=== PATIENT | female | born 2000 | race Caucasian/White ===

== ENCOUNTER 2018-03-23 23:04 | Emergency (ER) | payer OTHER ==
[2018-03-23] MEDS ORDERED: ONDANSETRON 4 MG TAB.RAPDIS PO ONE (23:28)
[2018-03-23] MEDS ORDERED: LIDOCAINE 1%/EPINEPHRINE INJ 20 ML VIAL INJ ONE (23:35)
--- NOTE | 2018-03-23 23:38 | ER Document Report ---
ED Animal Bite - General Chief Complaint: Dog Bite Stated Complaint: POSSIBLE ANIMAL BITE Time Seen by Provider: 03/23/18 23:22 Notes: Patient is a 18-year-old female that comes to the emergency department for chief complaint of dog bite to her right forearm. She states that she was trying to help her friend, the dog is owned by the friend and had already bitten the friend, afterwards patient was bitten as she approached. She was also bitten over the left forearm. She reports dog is up-to-date on its vaccinations. Patient reports being up-to-date on her tetanus within 5 years. Patient admits to intoxication with alcohol tonight but denies any other injuries. She states she is nauseated because of the site of blood. TRAVEL OUTSIDE OF THE [place] IN LAST 30 DAYS: No - Related Data Allergies/Adverse Reactions: No Known Allergies Allergy (Unverified 03/23/18 23:11) Past Medical History - General Information source: Patient - Social History Smoking Status: Never Smoker Frequency of alcohol use: Social Drug Abuse: None Lives with: Family Family History: Reviewed & Not Pertinent - Medical History Medical History: Negative Surgical Hx: Negative - Immunizations Immunizations up to date: Yes Hx Diphtheria, Pertussis, Tetanus Vaccination: Yes Review of Systems - Review of Systems Constitutional: No symptoms reported EENT: No symptoms reported Cardiovascular: No symptoms reported Respiratory: No symptoms reported Gastrointestinal: No symptoms reported Genitourinary: No symptoms reported Female Genitourinary: No symptoms reported Musculoskeletal: See HPI Skin: See HPI Hematologic/Lymphatic: No symptoms reported Neurological/Psychological: No symptoms reported Physical Exam - Vital signs Vitals: Temp Pulse Resp BP Pulse Ox 97.2 F 51 L 14 89/41 L 100 03/23/18 23:24 03/23/18 23:24 03/23/18 23:24 03/23/18 23:24 03/23/18 23:24 - Notes Notes: GENERAL: Tearful, hyperventilating HEAD: Normocephalic, atraumatic. EYES: Pupils equal, round, and reactive to light. Extraocular movements intact. ENT: Oral mucosa moist, tongue midline. Oropharynx unremarkable. Airway patent. Nares patent, no nasal septal hematoma, TM's intact. NECK: Full range of motion. Supple. Trachea midline. LUNGS: Clear to auscultation bilaterally, no wheezes, rales, or rhonchi. No respiratory distress. HEART: Regular rate and rhythm. No murmur ABDOMEN: Soft, non-tender. Non-distended. Bowel sounds present in all 4 quadrants. GENITOURINARY: Deferred EXTREMITIES: Multiple puncture wounds with mild soft tissue swelling over the sides of the proximal forearm on the right, there is a bite briana on the left forearm distally as well but the skin is not broken. Normal distal neurovascular exam, range of motion of the fingers, wrist, elbow, shoulder bilaterally. BACK: no cervical, thoracic, lumbar midline tenderness. No saddle anesthesia, normal distal neurovascular exam. NEUROLOGICAL: Alert and oriented x3. Normal speech. [cranial nerves II through XII grossly intact]. PSYCH: Anxious SKIN: Warm, dry, normal turgor. No rashes or lesions noted. Course - Re-evaluation Re-evalutation: X-ray without obvious abnormality, read is still pending. Initial vital signs strange, patient's blood pressure was repeated and is 130s systolic. Inquired about the initial read and the nurse thinks it was entered Patient with very superficial small bite over the left forearm, right proximal forearm with soft tissue swelling, pain, multiple punctures, 2 of the punctures are wide with subcutaneous and adipose tissue hanging out. Wounds were cleaned thoroughly, irrigated, dressed with Xeroform, the 2 wide wounds were irrigated more and numbed, afterwards vertical mattress stitches placed to approximate but not closed. Patient placed on Augmentin. Discussed wound care, antibiotic use, follow-up, and return precautions in detail with patient at bedside. Discussed with family who is also at bedside now. They state understanding and agreement. 03/24/18 00:50 There is a delay in radiology reading for the x-ray, no fracture, foreign body, or other abnormality noted on my review of the images. Patient has a ride and is requesting to leave. Will call them if there is any concerning abnormality on report later. 03/24/18 06:40 Radiologist has now read the report, soft tissue swelling and air in the tissues noted, the bite was acute therefore this was expected. No fracture or foreign body noted. - Vital Signs Vital signs: Temp Pulse Resp BP Pulse Ox 98.8 F 105 H 17 138/92 H 100 03/24/18 00:45 03/24/18 00:45 03/24/18 00:45 03/24/18 00:45 03/24/18 00:45 - Diagnostic Test Radiology reviewed: Image reviewed, Reports reviewed Procedures - Laceration/Wound Repair Right proximal forearm #1 Wound length (cm): 1 Wound's Depth, Shape: Irregular Laceration pre-procedure: Sterile PPE donned, Sterile drapes applied, Shur- Clens applied Anesthetic type: 1% Lidocaine w/epi Volume Anesthetic (mLs): 3 Wound explored: Clean, No foreign body removed Irrigated w/ Saline (mLs): 50 Wound Repaired With: Sutures Suture Size/Type: 4:0, Nylon Number of Sutures: 1 - Vertical mattress Layer Closure?: No Post-procedure wound care: Sterile dressing applied - Xeroform Post-procedure NV exam normal: Yes Complications: No Right proximal forearm #2 Wound length (cm): 0.5 Wound's Depth, Shape: Irregular Laceration pre-procedure: Sterile PPE donned, Sterile drapes applied, Shur- Clens applied Anesthetic type: 1% Lidocaine w/epi Volume Anesthetic (mLs): 2 Wound explored: Clean, No foreign body removed Irrigated w/ Saline (mLs): 50 Wound Debrided: Minimal Wound Repaired With: Sutures Suture Size/Type: 4:0, Nylon Number of Sutures: 1 - Vertical mattress Layer Closure?: No Post-procedure wound care: Sterile dressing applied - Xeroform Post-procedure NV exam normal: Yes Complications: No Discharge - Discharge Clinical Impression: Dog bite Qualifiers: Encounter type: initial encounter Qualified Code(s): W54.0XXA - Bitten by dog, initial encounter Forearm laceration Qualifiers: Encounter type: initial encounter Laterality: right Qualified Code(s): S51.811A - Laceration without foreign body of right forearm, initial encounter Condition: Stable Disposition: HOME, SELF-CARE Additional Instructions: You were seen in the emergency department after you sustained dog bites/wounds. The x-ray of the arm does not show fracture or foreign body. The sutures can be removed within a week at a medical facility. Keep clean, clean with soap and water, avoid soaking. Keep clean dressings over the areas. Wounds were approximated but not closed to reduce risk of infection. Take the oral antibiotic as provided. I recommend taking an over-the -counter probiotic to avoid diarrhea while taking this medication. You can take Tylenol or ibuprofen for pain/soreness. Return for any concerning symptoms including developing or spreading redness, discolored discharge, fever of 100.4 or greater, severe swelling/pain, or any other concerning or worsening symptoms. Prescriptions: Amox Tr/Potassium Clavulanate [Augmentin 875-125 Tablet] 1 tab PO BID 7 Days tablet
[2018-03-23] MEDS ORDERED: AMOXICILLIN TRIHYDRATE 500 MG CAPSULE PO ONE (23:57)
[2018-03-23] MEDS ORDERED: AMOXICILLIN TR/POT CLAVULANATE 500-125 MG TAB PO ONE (23:57)
[2018-03-24 00:47] VITALS: BP 138/92
--- NOTE | 2018-03-24 06:38 | RADIOLOGY REPORT (SQ) ---
Right forearm two view on 03/24/2018 at 12:02 AM CLINICAL INDICATION: Dog bite, pain and swelling COMPARISON: None FINDINGS: There is soft tissue swelling in the dorsum of the proximal to mid forearm. There is air in the soft tissues consistent with patient's history of dogbite although cannot exclude infection. There is no radiopaque foreign body. There are no fractures. Visualized joints are well aligned. No joint effusion is noted in the elbow. No plain radiographic evidence of osteomyelitis is noted. IMPRESSION: Air in the soft tissues with soft tissue swelling likely just related to recent dogbite although if the dogbite was remote then the air could be related to infection and please correlate clinically.
== END 2018-03-24 00:47 | disposition home or self-care (01) ==
LOC: ER 23:04
DX: S51.851A Open bite of right forearm, initial encounter (principal); W54.0XXA Bitten by dog, initial encounter; Y93.89 Activity, other specified; R11.0 Nausea
CPT/HCPCS: 99283; 73090; 12001; S0119; J3490